=== PATIENT | female | born 1940 | race Caucasian/White ===

== ENCOUNTER 2020-09-13 08:36 | Outpatient (CLI) | payer MEDICARE, SELFPAY ==
[2020-09-13 09:20] VITALS: BP 121/58; PULSE 68; RESP 20; TEMP 36.9; O2SAT 95
[2020-09-13 09:50] VITALS: BP 116/74; PULSE 68; RESP 20; TEMP 36.9; O2SAT 95
== END 2020-09-13 09:55 | disposition home or self-care (01) ==
LOC: INF 08:36
PROVIDERS: Visit Provider Emergency Medicine
DX: D50.8 Other iron deficiency anemias (principal)
CPT/HCPCS: 96365; Q0138

== ENCOUNTER 2020-09-14 17:45 | Emergency (ER) | payer MEDICARE, SELFPAY ==
[2020-09-14 17:46] VITALS: BP 105/87; PULSE 76; RESP 16; TEMP 36.4; O2SAT 93; BMI 34.5
--- NOTE | 2020-09-14 18:00 | PC.NURSE ---
upon triage and assessment of patient, patients states that has weird bruising on face, with dark spots on both lateral sides of face. patient and spouse states that patient is not currently on a blood thinner, and has not fallen and hit head. patient denies any trauma to face. I assessed bruising and realized that patient still had make up on face. i used an alcohol rub and gentle pressure to remove make up, and patient facial bruising went away. Patients states that her face looks 10x better.
--- NOTE | 2020-09-14 18:00 | PC.NURSE ---
Addendum entered by Matilde العلي, EMT-P 09/14/20 18:47: SAYS SHE HAS HER CREAT HAS BEEN RUNNING 1.5 AND HE HAS ADJUSTED HER MEDS BUT WOULD LIKE A CALL BACK WITH HER RESULTS SPOKE WITH AROUND 1800 HRS Original Note: SPOKE WITH DR REED ON PHONE
[2020-09-14 18:15] LABS: Basophils # 0.1 K/mm3 (0-0.2); Basophils % 0.6 % (0.1-2.0); Eosinophils # 0.4 K/mm3 (0.0-0.4); Eosinophils % 3.5 % (0.1-12.0); Hematocrit 37.7 % (37.0-47.0); Hemoglobin 12.9 g/dL (12.2-16.2); Lymphocytes # 2.4 K/mm3 (0.7-4.5); Lymphocytes % 23.2 % (10-50); Mean Corpuscular HGB Conc 34.2 g/dL (31.8-35.4); Mean Corpuscular Hemoglobin 30.3 pg (27.0-31.2); Mean Corpuscular Volume 88.5 fl (81-99); Mean Platelet Volume 7.6 fl (7.4-10.4); Monocytes # 0.5 K/mm3 (0.1-1.0); Monocytes % 5.2 % (1.7-9.3); Neutrophils # 6.9 K/mm3 (1.8-7.8); Neutrophils % 67.4 % (37.0-80.0); Platelet Count 219 K/mm3 (142-424); Red Blood Count 4.27 M/mm3 (4.20-5.40); Red Cell Distribution Width 15.9 % (11.5-17.5); White Blood Count 10.3 K/mm3 (4.8-10.8)
[2020-09-14 18:22] LABS: Alanine Aminotransferase 35 U/L (12-78); Albumin Level 4.5 g/dl (3.5-5.0); Albumin/Globulin Ratio 1.7 (1.1-1.8); Alkaline Phosphatase 65 U/L (38-126); Anion Gap 15.4 mEq/L (5-15); Aspartate Amino Transferase 47 U/L (14-36); Bilirubin,Total 0.6 mg/dl (0.2-1.3); Blood Urea Nitrogen 34 mg/dl (7-17); Calcium 10.4 mg/dl (8.4-10.2); Carbon Dioxide 30 mmol/L (22.0-30.0); Chloride 102 mmol/L (98-107); Creatinine Clearance Estimated 34 mL/min (50-200); Estimated Glomerular Filt Rate 27 ml/min (>60); GFR (African American) 33 ML/MIN (>60); Globulin 2.7 g/dL (1.3-3.2); Glucose 87 mg/dl (74-100); Potassium 4.4 mmoL/L (3.5-5.1); Sodium 143 mmol/L (136-145); Total Protein,Serum 7.2 g/dl (6.3-8.2)
--- NOTE | 2020-09-14 18:48 | PC.NURSE ---
DR RICHTER SPEAKING WITH DR REED REGARDING PT LABS
--- NOTE | 2020-09-14 18:49 | [facility].EDGENADL ---
ED Disposition Clinical Impression: Acute on chronic renal insufficiency, Sun-damaged skin Disposition: Home, Self-Care Condition on Discharge: Fair Instructions: DI for Kidney Failure, DI for Acute Kidney Injury Additional Instructions: You have been evaluated for spots on face, due to make-up and sun exposure. You have been evaluated for kidney insufficiency. Please drink water throughout the day. Follow-up with your primary care doctor in 1 to 2 days for recheck. Return to the emergency department for any new or worsening symptoms. Referrals: Kumar Zavala MD [Primary Care Provider] - Time of Disposition: 19:01 - Critical Care Critical Care Time: No Attestation: On 09/14/20, the high probability of a clinically significant, sudden or life threatening deterioration of the following system(s) required my full and direct attention, intervention and personal management. The time I documented below is in addition to time spent performing reported procedures but includes the following listed in this critical care notation. Medical Decision Making - Medical Records Medical records reviewed: Yes: I reviewed the patient's medical records. - Zaid Inquiry Pt receiving controlled substance: No Vital Signs: 09/14/20 17:46 Temperature 97.6 F Temperature Source Oral Pulse Rate [Left] 76 Respiratory Rate 16 Blood Pressure [Right Arm] 105/87 L Blood Pressure Mean [Right Arm] 93 02 Sat by Pulse Oximetry 93 L - Lab Data Lab Results 09/14/20 16:08: Sodium 143, Potassium 4.4, Chloride 102, Carbon Dioxide 30, Anion Gap 15.4 H, BUN 34 H, Creatinine 1.80 H, Estimated Creat Clear 34, Estimated GFR 27 L, Est GFR ( Amer) 33 L, Glucose 87, Calcium 10.4 H, Total Bilirubin 0.6, AST 47 H, ALT 35, Alkaline Phosphatase 65, Total Protein 7.2, Albumin 4.5, Globulin 2.7, Albumin/Globulin Ratio 1.7 09/14/20 18:08: WBC 10.3, RBC 4.27, Hgb 12.9, Hct 37.7, MCV 88.5, MCH 30.3, MCHC 34.2, RDW 15.9, Plt Count 219, MPV 7.6, Neut % (Auto) 67.4, Lymph % (Auto) 23.2, [place] % (Auto) 5.2, Eos % (Auto) 3.5, Baso % (Auto) 0.6, Neut # (Auto) 6.9, Lymph # (Auto) 2.4, [place] # (Auto) 0.5, Eos # (Auto) 0.4, Baso # (Auto) 0.1 Result diagrams: 09/14/20 18:08 09/14/20 16:08 Medical Decision Narrative: In summary this is a 80-year-old female presenting to the emergency department with dark spots on her face. She is clinically stable on arrival. Vital signs within normal limits. Physical exam shows that there is make-up on the face, of different colors of dark brown. Able to remove some of the spots. She also has dark brown sun spots on her cheeks and her forearms. These are likely benign. None with irregular borders or bleeding. We will check screening CBC and CMP Patient's primary care physician called me, concerned that she is having worsening renal dysfunction. Initial laboratory results show no anemia. Hemoglobin is 12.7 with hematocrit of 37. She does have renal insufficiency with creatinine of 1.8, BUN of 32. This has been gradually worsening over the last few months. It was 1, then 1.5. Patient's primary physician, Dr. Zavala will graciously see her in clinic this week to discuss her medications, hydration. May need to see nephrology. Stable for discharge General Adult HPI - General Chief complaint: Skin/Abscess/Foreign Body Stated complaint: Dr. Zavala sent to ER Time Seen by Provider: 09/14/20 17:55 Mode of Arrival: Ambulatory Limitations: No Limitations Description of Symptoms (Recalled from ER Triage Doc. by RN): patient was sent here from Dr. Zavala for brown spots on face and bloodwork. - History of Present Illness HPI narrative: 80-year-old female presenting to the emergency department with color changes to her face. Today her noticed that there were dark spots on the sides of her cheeks, bilaterally. They look like brownish-blue spots. None on the forehead or chin. No known falls or trauma. Tiki
[2020-09-14 19:05] VITALS: BP 132/71; PULSE 75; RESP 17; TEMP 36.8; O2SAT 98
== END 2020-09-14 19:07 | disposition home or self-care (01) ==
PROVIDERS: Emergency Provider Emergency Medicine; PCP Emergency Medicine
DX: N28.9 Disorder of kidney and ureter, unspecified (principal); L57.8 Other skin changes due to chronic exposure to nonionizing radiation
CPT/HCPCS: 80053; 85025; 99282

== ENCOUNTER → 2021-10-15 10:41 | Outpatient (CLI) | payer MEDICARE, SELFPAY ==
--- NOTE | 2021-10-15 | CA_ITS ---
FINAL REPORT TECHNIQUE: Ultrasound images of the deep venous system were obtained from the left groin to the calf veins. CLINICAL HISTORY: Left leg pain and swelling FINDINGS: The deep venous system is normally compressible. Normal flow is identified. IMPRESSION: No evidence of left lower extremity DVT. Reviewed, Interpreted and Dictated by Haroon Veliz MD Transcribed by Wendy Ortiz Authenticated and [facility]
[2021-10-15 12:30] LABS: Basophils # 0.1 K/mm3 (0-0.2); Basophils % 0.6 % (0.1-2.0); Eosinophils # 0.2 K/mm3 (0.0-0.4); Eosinophils % 2.4 % (0.1-12.0); Hematocrit 44.1 % (37.0-47.0); Hemoglobin 13.4 g/dL (12.2-16.2); Lymphocytes # 1.9 K/mm3 (0.7-4.5); Lymphocytes % 22.6 % (10-50); Mean Corpuscular HGB Conc 30.4 g/dL (31.8-35.4); Mean Corpuscular Hemoglobin 29.2 pg (27.0-31.2); Mean Platelet Volume 7.8 fl (7.4-10.4); Monocytes # 0.5 K/mm3 (0.1-1.0); Monocytes % 5.8 % (1.7-9.3); Neutrophils # 5.8 K/mm3 (1.8-7.8); Neutrophils % 68.6 % (37.0-80.0); Platelet Count 215 K/mm3 (142-424); Red Blood Count 4.59 M/mm3 (4.20-5.40); White Blood Count 8.4 K/mm3 (4.8-10.8)
[2021-10-15 12:57] LABS: Hemoglobin A1C 8.8 % (4.0-6.0)
[2021-10-15 13:02] LABS: Chloride 101 mmol/L (98-107); Potassium 5.4 mmoL/L (3.5-5.1); Sodium 139 mmol/L (136-145)
[2021-10-15 13:05] LABS: Anion Gap 13.4 mEq/L (5-15); Calcium 8.8 mg/dl (8.4-10.2); Carbon Dioxide 30 mmol/L (22.0-30.0); Glucose 225 mg/dl (74-100)
[2021-10-15 13:15] LABS: NT Pro Brain Natriuretic Pep. 29.5 pg/mL (0-450)
[2021-10-15 13:17] LABS: Blood Urea Nitrogen 22 mg/dl (7-17); Estimated Glomerular Filt Rate 48 ml/min (>60); GFR (African American) 58 ML/MIN (>60)
[2021-10-15 13:23] LABS: Free T4 (Free Thyroxine) 1.25 ng/dl (0.78-2.19)
[2021-10-15 13:36] LABS: Thyroid Stimulating Hormone 0.18 uIU/mL (0.465-4.68)
== END ==
PROVIDERS: PCP Emergency Medicine; Visit Provider Emergency Medicine
DX: M79.605 Pain in left leg (principal); R06.02 Shortness of breath; E11.9 Type 2 diabetes mellitus without complications; I10 Essential (primary) hypertension; E03.9 Hypothyroidism, unspecified
CPT/HCPCS: 36415; 80048; 83036; 83880; 84436; 84439; 84443; 85025; 93971